=== PATIENT | female | born 1960 | race Caucasian/White ===

== ENCOUNTER 2017-03-09 17:19 | Emergency (ER) | payer OTHER ==
[~2017-03-09] VITALS: Ht 162.6 cm; Wt 144.0 kg
[~2017-03-09 17:19] MED LIST: FLUO40CA49 PO; LEVO100T85 PO; LISI-114 PO; [UNRECOGNIZED DRUG - REMARK]
[2017-03-09 17:22] VITALS: Ht 162.6 cm; Wt 144.0 kg
--- OUTSIDE RECORDS SUMMARY | 2017-03-09 17:24 | XMS REPORT | Referral Summary ---
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 Name Role Phone Renay Song Primary Care Physician [phone] Encounter VC Date(s): 01/08/15 - 01/08/15 [facility], [address] [place] [address]- [place] Discharge Diagnosis: Ankle sprain Discharge Diagnosis: Foot pain Discharge Disposition: Home or Self Care Attending Physician: Betty Sanchez APRN Admitting Physician: Betty Sanchez APRN Vital Signs Most recent to 1 oldest [Reference Range]: Temperature Tympanic 36.8 degC [36.6-38.1 degC] (01/08/15 2:33 PM) Peripheral Pulse 72 bpm Rate [60-100 bpm] (01/08/15 2:33 PM) Blood Pressure 110/80 mmHg [90-140/60-90 mmHg] (01/08/15 2:33 PM) Problem List Condition Effective Dates Status Health Status Informant Allergic Resolved rhinitis(Confirmed) Allergies(Confirmed) Resolved Angina(Confirmed) Resolved Anxiety(Confirmed) Resolved Bladder Resolved problem(Confirmed) Bronchitis(Confirmed Resolved ) Chronic Resolved osteoarthritis(Confi rmed) Constipation(Confirm Resolved ed) Depression(Confirmed Resolved ) Diabetes-type Resolved 2(Confirmed) Diverticulosis(Confi Resolved rmed) Dysmenorrhea(Confirm Resolved ed) Fatigue(Confirmed) Resolved GERD(Confirmed) Resolved High Resolved cholesterol(Confirme d) Hyperlipidemia(Confi Resolved rmed) Hypertension(Confirm Resolved ed) Hypothyroidism(Confi Resolved rmed) Kidney Resolved Disease/Stones(Confi rmed) kidney Resolved problems-unsure(Conf irmed)1 Knee Resolved pain(Confirmed)2 Microalbuminuria(Con Resolved firmed) Osteoarthritis(Confi Resolved rmed) Sleep Resolved apnea(Confirmed) 1Care by Dr Mireles 2lt Allergies, Adverse Reactions, Alerts Substance Reaction Severity Status penicillin Active Medications amLODIPine 5 mg oral tablet 1 tabs, Oral, Daily, Patient must schedule appt prior to next fill., # 30 tabs, 0 Refill(s), Pharmacy: [facility] [id number], 1 tabs Oral Daily,Instr: Patient must schedule appt prior to next fill. Special Instructions: Patient must schedule appt prior to next fill. Start Date: 12/11/14 Status: Ordered FLUoxetine 40 mg oral capsule See Instructions, TAKE 1 CAPSULE BY MOUTH EVERY MORNING, # 30 caps, 2 Refill(s) , eRx: [facility] [id number], TAKE 1 CAPSULE BY MOUTH EVERY MORNING Special Instructions: TAKE 1 CAPSULE BY MOUTH EVERY MORNING Start Date: 12/28/14 Status: Ordered fosinopril 20 mg oral tablet 1 tabs, Oral, Daily, # 30 tabs, 0 Refill(s) Start Date: 03/22/14 Status: Ordered ibuprofen 200 mg, Oral, q6hr, as needed for pain, with food, 0 Refill(s) Special Instructions: with food Start Date: 03/22/14 Status: Ordered levothyroxine 100 mcg (0.1 mg) oral tablet See Instructions, TAKE 1 TABLET BY MOUTH EVERY DAY., # 90 unknown unit, 3 Refill (s), eRx: [facility] [id number], TAKE 1 TABLET BY MOUTH EVERY DAY. Special Instructions: TAKE 1 TABLET BY MOUTH EVERY DAY. Start Date: 05/04/14 Status: Ordered triamterene-hydrochlorothiazide 37.5 mg-25 mg oral capsule See Instructions, TAKE 1 CAPSULE BY ORAL ROUTE EVERY DAY, # 90 unknown unit, 2 Refill(s), eRx: [facility] [id number], TAKE 1 CAPSULE BY ORAL ROUTE EVERY DAY Special Instructions: TAKE 1 CAPSULE BY ORAL ROUTE EVERY DAY Start Date: 10/19/14 Status: Ordered Results No data available for this section Immunizations Vaccine Date Refusal Reason tetanus/diphth/pertuss (Tdap) adult/adol 08/22/13 influenza virus vaccine, live 09/12/13 Procedures Procedure Date Related Diagnosis Body Site Hysterectomy 02/29/12 Colonoscopy1 07/24/08 section2 1982 Cholecystectomy Cornea transplant Tonsillectomy 1repeat in 10 years 2Second in 1985 Social History Social History Type Response Smoking Status Never smoker Assessment and Plan Extracted from: Title: Office Visit Note Author: Betty Sanchez APRN Date: 01/08/15 Assessment/Plan 1.Ankle sprain reviewed xray. symptom management. ice, elevate, rest. let us know if s/s persist or worsen. Foot pain
--- OUTSIDE RECORDS SUMMARY | 2017-03-09 17:24 | XMS REPORT | Continuity of Care Document ---
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 Name Role Phone Alyssa Song KERRI Unavailable Payers Payer name Insurance type Covered libertarian ID Authorization(s) Unknown Problems Condition Effective Dates (start - stop) Clinical Status Depression - *Chronic Hypertension, Unspecified - *Chronic Obesity - *Chronic Hypertension, Benign - *Chronic Obesity - *Chronic Depression - *Chronic Back pain - *Acute Knee pain - *Acute Hypertension, Unspecified - *Chronic Obesity - *Chronic Hypertension, Unspecified - *Chronic Depression - *Chronic Finger pain, left - *Acute Finger swelling - *Acute Depression - *Chronic Allergic rhinitis, cause unspecified - *Chronic Obesity - *Chronic Constipation - *Chronic Hypertension, Benign - *Chronic Proteinuria - *Acute Constipation, unspecified - *Acute Knee pain - *Acute Hypertension, Unspecified - *Chronic Osteoarth NOS-l/leg - *Chronic Primary osteoarthritis of left knee - *Symptomatic BPPV (benign paroxysmal positional vertigo) - *Acute Morbid obesity with BMI of 45.0-49.9, adult - *Chronic Body mass index 45.0-49.9, adult - *Chronic Primary osteoarthritis of both knees - *Symptomatic HYPOTHYROIDISM NOS - DMII WO CMP UNCNTRLD - PURE HYPERCHOLESTEROLEM - ANXIETY STATE NOS - 311 - DEPRESSIVE DISORDER NEC - MALIGNANT HYPERTENSION - HYPERTENSION NOS - ANGINA PECTORIS NEC/NOS - ALLERGIC RHINITIS NOS - 490 - BRONCHITIS NOS - CONSTIPATION NOS - CHRONIC KIDNEY DIS NOS - DYSMENORRHEA - OSTEOARTHROS NOS-UNSPEC - URINARY FREQUENCY - ALLERGY, UNSPECIFIED - Proteinuria - *Chronic Constipation, unspecified - *Chronic Pain in joint involving lower leg - *Chronic History of menorrhagia - *Resolved Family History Family Member Diagnosis Age At Onset Status Mother (Unknown) Cancer - ovarian Yes Son (Unknown) Diabetes Yes Social History Social History Element Description Quantity Unknown Allergies, Adverse Reactions, Alerts Substance Reaction Severity Status PENICILLINS Unknown Medications Medication Instructions Dosage Effective Dates (start - stop) Status Prozac 40 mg capsule take 1 capsule (40MG) by oral route every day in the morning 40 MG - Active ibuprofen 200 mg tablet take 1 tablet (200MG) by oral route every 6 hours as needed with food 200 MG - Active Miralax 17 gram/dose Oral Powder take (17G) by oral route every day mixed with 8 oz. water, juice, soda, coffee or tea 17 G - Active Metamucil Sugar Free Oral Powder USE DAILY PRN - Active levothyroxine 100 mcg tablet Take 1 tablet by mouth every day. 2012 - Active Flexeril 5 mg tablet take 1 tablet (5MG) by oral route 3 times every day 5 MG - Active hydrocodone 5 mg-acetaminophen 325 mg tablet take 1 tablet by oral route every 6 hours as needed for pain 0 - Active fosinopril 20 mg tablet take 1 tablet (20MG) by oral route every day 20 MG - Active triamterene 37.5 mg-hydrochlorothiazide 25 mg capsule take 1 capsule by oral route every day 0 - Active Immunizations Vaccine Date Status Comments Unknown Results Test Name Date and Time Measure Units Reference Range Abnormal Flag Comments Unknown Vital Signs Date / Time: Height Weight Pulse Rate Blood Pressure Temperature /11:43:00 65.00 in 310.40 lbs 74 /min 140/80 mm[Hg] 97.8 F Procedures Procedure Date Unknown Encounters Encounter Location Date Patient Visit [facility] Patient Visit [facility] Patient Visit [facility] Patient Visit [facility] Patient Visit [facility] Patient Visit [facility] Patient Visit [facility] Patient Visit [facility] Patient Visit [facility] Patient Visit Patient Visit [facility] Patient Visit [facility] Patient [facility] Patient Visit [facility] Patient Visit [facility] Patient Visit [facility] Patient Visit [facility] Patient Visit [facility] Patient Visit [facility] Advance Directives Directive Effective Date Unknown
--- OUTSIDE RECORDS SUMMARY | 2017-03-09 17:24 | XMS REPORT | Continuity of Care Document ---
Author Author [facility] Organization [facility] Address Unknown Phone Unavailable Allergies Active Description Code Type Severity Reaction Onset Reported/Identified Relationship to Patient Clinical Status Yes ciprofloxacin ciprofloxacin Drug Allergy Severe NAUSEA AND DIARRHEA 12/25/2015 Yes UNKNOWN ANTIBIOTIC UNKNOWN ANTIBIOTIC Drug Allergy Unknown N/V 12/25/2015 Medications Problems Procedures Results Encounters ACCT No. Visit Date/Time Discharge Status Pt. Type Provider Facility Loc./Unit Complaint [id number] 01/15/2014 08:58:00 01/15/2014 23 :59:59 [facility] Outpatient [id number] 08/11/2013 11:37:00 08/11/2013 23 :59:59 [facility] Outpatient
--- OUTSIDE RECORDS SUMMARY | 2017-03-09 17:24 | XMS REPORT | Referral Summary ---
Author Author [facility] [place], [facility] Organization [facility] Address Unknown Phone Unavailable Care Team Providers Care Hotel Sales Manager Name Role Phone Rony Acosta Primary Care Physician [phone] Encounter Date(s): 11/08/15 - 11/08/15 [facility] [place], [address] [place] [id number] Discharge Diagnosis: Knee pain Discharge Diagnosis: Hyperlipidemia Discharge Diagnosis: Diarrhea Discharge Disposition: 01-Home or Self Care Attending Physician: Manda Acosta DO Admitting Physician: Manda Acosta DO Vital Signs Most recent to 1 oldest [Reference Range]: Peripheral Pulse 84 bpm Rate [60-100 bpm] (11/08/15 1:57 PM) Respiratory Rate 18 br/min [14-20 br/min] (11/08/15 1:57 PM) Blood Pressure 126/78 mmHg [90-140/60-90 mmHg] (11/08/15 1:57 PM) SpO2 97 % (11/08/15 1:57 PM) Problem List Condition Effective Dates Status Health Status Informant Allergic Resolved rhinitis(Confirmed) Allergies(Confirmed) Resolved Angina(Confirmed) Resolved Anxiety(Confirmed) Resolved Bladder Resolved problem(Confirmed) Bronchitis(Confirmed Resolved ) Chronic Resolved osteoarthritis(Confi rmed) Constipation(Confirm Resolved ed) Depression(Confirmed Resolved ) Diabetes-type Resolved 2(Confirmed) Diarrhea(Confirmed) Active Diverticulosis(Confi Resolved rmed) Dysmenorrhea(Confirm Resolved ed) Fatigue(Confirmed) [...] Active Medications amLODIPine 5 mg oral tablet 5 mg 1 tabs, Oral, Daily, APPT SCHEDULED FOR 10/[address] ACOSTA, # 30 tabs, 0 Refill(s), Pharmacy: [facility] [id number], 1 tabs Oral Daily,Instr:APPT SCHEDULED FOR 10/[address] ACOSTA Start Date: 10/11/15 Status: Ordered FLUoxetine 40 mg oral capsule See Instructions, TAKE 1 CAPSULE BY MOUTH EVERY MORNING, # 30 caps, eRx: [facility] [id number], TAKE 1 CAPSULE BY MOUTH EVERY MORNING Start Date: 04/29/15 Status: Ordered FLUoxetine 40 mg oral capsule See Instructions, TAKE 1 CAPSULE BY MOUTH EVERY MORNING, # 30 caps, eRx: [facility] [id number], TAKE 1 CAPSULE BY MOUTH EVERY MORNING Start Date: 03/26/15 Status: Ordered FLUoxetine 40 mg oral capsule See Instructions, TAKE 1 CAPSULE BY MOUTH EVERY MORNING, # 30 caps, 1 Refill(s) , Pharmacy: [facility] [id number], TAKE 1 CAPSULE BY MOUTH EVERY MORNING Start Date: 10/21/15 Status: Ordered fosinopril 20 mg oral tablet 1 tabs, Oral, Daily, # 30 tabs, 0 Refill(s) Start Date: 03/22/14 Status: Ordered ibuprofen 200 mg, Oral, q6hr, as needed for pain, with food, 0 Refill(s) Start Date: 03/22/14 Status: Ordered levothyroxine 100 mcg (0.1 mg) oral tablet See Instructions, TAKE 1 TABLET BY MOUTH DAILY, # 30 tabs, 2 Refill(s), Pharmacy : [facility] [id number], TAKE 1 TABLET BY MOUTH DAILY Start Date: 10/21/15 Status: Ordered triamterene-hydrochlorothiazide 37.5 mg-25 mg oral capsule See Instructions, 1 CAPS ORAL DAILY,INSTR:* LAST REFILL UNTIL SEEN * YOU NEED TO SET UP APPOINTMENT WITH DR. ACOSTA, # 30 caps, 3 Refill(s), eRx: [facility] [id number], 1 CAPS ORAL DAILY,INSTR:* LAST REFILL UNTIL SEEN * YOU NEED TO SET UP APPOINTME... Start Date: 10/29/15 Status: Ordered Results No data available for [...] Extracted from: Title: Office Visit Note Author: Manda Acosta DO Date: 11/08/15 Assessment/Plan Diarrhea Patient will try a probiotic and we'll also keep a food journal. If this is not effective she will return to clinic. Ordered: Office Visit Level 4 Est 76598 Hyperlipidemia Discussed recent laboratory testing results. Handouts given ondietary modifications. We'll plan to recheck labs in 3-6 months. Ordered: Office Visit Level 4 Est 88824 Knee pain I discussed the results of recent MRI with patientwe will start with physical therapy. She should return to clinic if this is not effective for her. Ordered: Office Visit Level 4 Est [id number] Request for Therapies Extracted from: Title: Ambulatory Patient Education Author: Manda Acosta DO Date: Family Medicine Fat and Cholesterol Control Diet Fat and cholesterol levels in your blood and organs are influenced by your diet. High levels of fat and cholesterol may lead to diseases of the heart, small and large blood vessels, gallbladder, liver, and pancreas. CONTROLLING FAT AND CHOLESTEROL WITH DIET Although exercise and lifestyle factors are important, your diet is friedman. That is because certain foods are known to raise cholesterol and others to lower it. The goal is to balance foods for their effect on cholesterol and more importantly, to replace saturated and trans fat with other types of fat, such as monounsaturated fat, polyunsaturated fat, and omega-3 fatty acids. On average, a person should consume no more than 15 to 17 g of saturated fat daily. Saturated and trans fats are considered "bad" fats, and they will raise LDL cholesterol. Saturated fats are primarily found in animal products such as meats, butter, and cream. However, that does not mean you need to give up all your favorite foods. Today, there are good tasting, low-fat, low-cholesterol substitutes for most of the things you like to eat. Choose low-fat or nonfat alternatives. Choose round or loin cuts of red meat. These types of cuts are lowest in fat and cholesterol. Chicken (without the skin), fish, veal, and ground turkey breast are great choices. Eliminate fatty meats, such as hot dogs and salami. Even shellfish have little or no saturated fat. Have a 3 oz (85 g) portion when you eat lean meat, poultry, or fish. Trans fats are also called "partially hydrogenated oils." They are oils that have been scientifically manipulated so that they are solid at room temperature resulting in a longer shelf life and improved taste and texture of foods in which they are added. Trans fats are found in stick margarine, some tub margarines, cookies, crackers, and baked goods. When baking and cooking, oils are a great substitute for butter. The monounsaturated oils are especially beneficial since it is believed they lower LDL and raise HDL. The oils you should avoid entirely are saturated tropical oils, such as coconut and palm. Remember to eat a lot from food groups that are naturally free of saturated and trans fat, including fish, fruit, vegetables, beans, grains (barley, rice, couscous, bulgur wheat), and pasta (without cream sauces). IDENTIFYING FOODS THAT LOWER FAT AND CHOLESTEROL Soluble fiber may lower your cholesterol. This type of fiber is found in fruits such as apples, vegetables such as broccoli, potatoes, and carrots, legumes such as beans, peas, and lentils, and grains such as barley. Foods fortified with plant sterols (phytosterol) may also lower cholesterol. You should eat at least 2 g per day of these foods for a cholesterol lowering effect. Read package labels to identify low-saturated fats, trans fat free, and low-fat foods at the supermarket. Select cheeses that have only 2 to 3 g saturated fat per ounce. Use a heart-healthy tub margarine that is free of trans fats or partially hydrogenated oil. When buying baked goods (cookies, crackers), avoid partially hydrogenated oils. Breads and muffins should be made from whole grains (whole-wheat or whole oat flour, instead of "flour" or "enriched flour") . Buy non-creamy canned soups with reduced salt and no added fats. FOOD PREPARATION TECHNIQUES Never deep-miguel. If you must miguel, either stir-miguel, which uses very little fat, or use non-stick cooking sprays. When possible, broil, bake, or roast meats, and steam vegetables. Instead of putting butter or margarine on vegetables, use lemon and herbs, applesauce, and cinnamon (for squash and sweet potatoes). Use nonfat yogurt, salsa, and low-fat dressings for salads. LOW-SATURATED FAT / LOW-FAT FOOD SUBSTITUTES Meats / Saturated Fat (g) Avoid: Steak, marbled (3 oz/85 g) / 11 g Choose: Steak, lean (3 oz/85 g) / 4 g Avoid: Hamburger (3 oz/85 g) / 7 g Choose: Hamburger, lean (3 oz/85 g) / 5 g Avoid: Ham (3 oz/85 g) / 6 g Choose: Ham, lean cut (3 oz/85 g) / 2.4 g Avoid: Chicken, with skin, dark meat (3 oz/85 g) / 4 g Choose: Chicken, skin removed, dark meat (3 oz/85 g) / 2 g Avoid: Chicken, with skin, light meat (3 oz/85 g) / 2.5 g Choose: Chicken, skin removed, light meat (3 oz/85 g) / 1 g Dairy / Saturated Fat (g) Avoid: Whole milk (1 cup) / 5 g Choose: Low-fat milk, 2% (1 cup) / 3 g Choose: Low-fat milk, 1% (1 cup) / 1.5 g Choose: Skim milk (1 cup) / 0.3 g Avoid: Hard cheese (1 oz/28 g) / 6 g Choose: Skim milk cheese (1 oz/28 g) / 2 to 3 g Avoid: Cottage cheese, 4% fat (1 cup) / 6.5 g Choose: Low-fat cottage cheese, 1% fat (1 cup) / 1.5 g Avoid: Ice cream (1 cup) / 9 g Choose: Sherbet (1 cup) / 2.5 g Choose: Nonfat frozen yogurt (1 cup) / 0.3 g Choose: Frozen fruit bar / trace Avoid: Whipped cream (1 tbs) / 3.5 g Choose: Nondairy whipped topping (1 tbs) / 1 g Condiments / Saturated Fat (g) Avoid: Mayonnaise (1 tbs) / 2 g Choose: Low-fat mayonnaise (1 tbs) / 1 g Avoid: Butter (1 tbs) / 7 g Choose: Extra light margarine (1 tbs) / 1 g Avoid: Coconut oil (1 tbs) / 11.8 g Choose: [place] oil (1 tbs) / 1.8 g Choose: [place] oil (1 tbs) / 1.7 g Choose: Safflower oil (1 tbs) / 1.2 g Choose: [place] oil (1 tbs) / 1.4 g Choose: Soybean oil (1 tbs) / 2.4 g Choose: Canola oil (1 tbs) / 1 g Document Released: 10/08/2006 Document Revised: 02/02/2014 Document Reviewed: [facility] Patient Information 2015 [employer] [facility]. This information is not intended to replace advice given to you by your health care provider. Make sure you discuss any questions you have with your health care provider. Food Choices to Lower Your Triglycerides Triglycerides are a type of fat in your blood. High levels of triglycerides can increase the risk of heart disease and stroke. If your triglyceride levels are high, the foods you eat and your eating habits are very important. Choosing the right foods can help lower your triglycerides. WHAT GENERAL GUIDELINES DO I NEED TO FOLLOW? Lose weight if you are overweight. Limit or avoid alcohol. Fill one half of your plate with vegetables and green salads. Limit fruit to two servings a day. Choose fruit instead of juice. Make one fourth of your plate whole grains. Look for the word "whole" as the first word in the ingredient list. Fill one fourth of your plate with lean protein foods. Enjoy fatty fish (such as salmon, mackerel, sardines, and tuna) three times a week. Choose healthy fats. Limit foods high in starch and sugar. Eat more home-cooked food and less restaurant, buffet, and fast food. Limit fried foods. Cook foods using methods other than frying. Limit saturated fats. Check ingredient lists to avoid foods with partially hydrogenated oils ( trans fats) in them. WHAT FOODS CAN I EAT? Grains Whole grains, such as whole wheat or whole grain breads, crackers, cereals, and pasta. Unsweetened oatmeal, bulgur, barley, quinoa, or brown rice. [place] or whole wheat flour tortillas. Vegetables Fresh or frozen vegetables (raw, steamed, roasted, or grilled). Green salads. Fruits All fresh, canned (in natural juice), or frozen fruits. Meat and Other Protein Products Ground beef (85% or leaner), grass-fed beef, or beef trimmed of fat. Skinless chicken or turkey. Ground chicken or turkey. Pork trimmed of fat. All fish and seafood. Eggs. Dried beans, peas, or lentils. Unsalted nuts or seeds. Unsalted canned or dry beans. Dairy Low-fat dairy products, such as skim or 1% milk, 2% or reduced-fat cheeses, low- fat ricotta or cottage cheese, or plain low-fat yogurt. Fats and Oils Tub margarines without trans fats. Light or reduced-fat mayonnaise and salad dressings. Avocado. Safflower, olive, or canola oils. Natural peanut or almond butter. The items listed above may not be a complete list of recommended foods or beverages. Contact your dietitian for more options. WHAT FOODS ARE NOT RECOMMENDED? Grains White bread. White pasta. White rice. Cornbread. Bagels, pastries, and croissants. Crackers that contain trans fat. Vegetables White potatoes. [place]. Creamed or fried vegetables. Vegetables in a cheese sauce. Fruits Dried fruits. Canned fruit in light or heavy syrup. Fruit juice. Meat and Other Protein Products Fatty cuts of meat. Ribs, chicken wings, garcias, sausage, bologna, salami, chitterlings, fatback, hot dogs, bratwurst, and packaged luncheon meats. Dairy Whole or 2% milk, cream, [id number], and cream cheese. Whole-fat or sweetened yogurt. Full-fat cheeses. Nondairy creamers and whipped toppings. Processed cheese, cheese spreads, or cheese curds. Sweets and Desserts [place] syrup, sugars, honey, and molasses. Candy. Jam and jelly. Syrup. Sweetened cereals. Cookies, pies, cakes, donuts, muffins, and ice cream. Fats and Oils Butter, stick margarine, lard, shortening, ghee, or garcias fat. Coconut, palm kernel, or palm oils. Beverages Alcohol. Sweetened drinks (such as sodas, lemonade, and fruit drinks or punches) . The items listed above may not be a complete list of foods and beverages to avoid. Contact your dietitian for more information. Document Released: 07/26/2005 Document Revised: 10/13/2014 Document Reviewed: [facility] Patient Information 2015 [facility], [facility]. This information is not intended to replace advice given to you by your health care provider. Make sure you discuss any questions you have with your health care provider. No follow up information was provided.
--- OUTSIDE RECORDS SUMMARY | 2017-03-09 17:24 | XMS REPORT | Referral Summary ---
Author Author [facility], Family Medicine Organization [facility] Address Unknown Phone Unavailable Care Team Providers Care Vp Marketing Services And Skin Name Role Phone Rony Acosta Primary Care Physician [phone] Encounter VC Date(s): 12/22/15 - 12/22/15 [facility] Dick Newton, [address] [place] [address]- Discharge Disposition: 01-Home or Self Care Attending Physician: Manda Acosta DO Admitting Physician: Manda Acosta DO Vital Signs Most recent to 1 oldest [Reference Range]: Peripheral Pulse 83 bpm Rate [60-100 bpm] (12/22/15 12:46 PM) Respiratory Rate 18 br/min [14-20 br/min] (12/22/15 12:46 PM) Blood Pressure 108/76 mmHg [90-140/60-90 mmHg] (12/22/15 12:46 PM) SpO2 95 % (12/22/15 12:46 PM) Problem List Condition Effective Dates Status [...] Active Medications amLODIPine 5 mg oral tablet See Instructions, 1 TABS ORAL DAILY,INSTR:APPT SCHEDULED FOR 10/[address] ACOSTA , # 30 tabs, 2 Refill(s), eRx: [facility] [id number], 1 TABS ORAL DAILY, INSTR:APPT SCHEDULED FOR 10/[address] ACOSTA Start Date: 11/10/15 Status: Ordered FLUoxetine 40 mg oral capsule See Instructions, TAKE 1 CAPSULE BY MOUTH EVERY MORNING, # 30 caps, 1 Refill(s) , eRx: [facility] [id number], TAKE 1 CAPSULE BY MOUTH EVERY MORNING Start Date: 12/17/15 Status: Ordered fosinopril 20 mg oral tablet 1 tabs, Oral, Daily, # 30 tabs, 0 Refill(s) Start Date: 03/22/14 Status: Ordered ibuprofen 200 mg, Oral, q6hr, as needed for pain, with food, 0 Refill(s) Start Date: 03/22/14 Status: Ordered levothyroxine 100 mcg (0.1 mg) oral tablet See Instructions, TAKE 1 TABLET BY MOUTH DAILY, # 30 tabs, 2 Refill(s), Pharmacy : [facility] [id number], TAKE 1 TABLET BY MOUTH DAILY Start Date: 10/21/15 Status: Ordered triamterene-hydrochlorothiazide 37.5 mg-25 mg oral capsule See Instructions, 1 CAPS ORAL DAILY,INSTR:* LAST REFILL UNTIL SEEN * YOU NEED TO SET UP APPOINTMENT WITH DR. ACOSTA, # 30 caps, 3 Refill(s), eRx: [facility] [id number], 1 CAPS ORAL DAILY,INSTR:* LAST REFILL UNTIL [...] smoker Assessment and Plan Extracted from: Title: WWE Author: Manda Acosta DO Date: 12/22/15 Assessment/Plan Screening for human papillomavirus (HPV) Ordered: HPV High Risk, Thin Prep Well female exam with routine gynecological exam Normal exam today. Further recommendations after results of Pap and HPV testing. We will assist her in any way we can in regards to weight loss surgery. Ordered: Periodic Comp Preventive Med 40 to 64 years Est 58085
--- OUTSIDE RECORDS SUMMARY | 2017-03-09 17:24 | XMS REPORT | Referral Summary ---
Author Organization Unknown Address Unknown Phone Unavailable Care Team Providers Care Wholesale Agronomist Name Role Phone Renay Song Primary Care Physician [phone] Encounter VC Date(s): 12/07/14 - 12/07/14 [facility], [address] [place] [address]- Discharge Diagnosis: Acute URI Discharge Disposition: Home or Self Care Attending Physician: Betty Sanchez APRN Admitting Physician: Betty Sanchez APRN Vital Signs Most recent to 1 oldest [Reference Range]: Temperature Tympanic 36.7 degC [36.6-38.1 degC] (12/07/14 8:54 AM) Peripheral Pulse 78 bpm Rate [60-100 bpm] (12/07/14 8:54 AM) Blood Pressure 120/70 mmHg [90-140/60-90 mmHg] (12/07/14 8:54 AM) Problem List Condition Effective Dates Status Health [...] amLODIPine 5 mg oral tablet See Instructions, TAKE 1 TABLET (5MG) BY ORAL ROUTE EVERY DAY, # 30 unknown unit , 1 Refill(s), eRx: [facility] [id number], TAKE 1 TABLET (5MG) BY ORAL ROUTE EVERY DAY Special Instructions: TAKE 1 TABLET (5MG) BY ORAL ROUTE EVERY DAY Start Date: 06/29/14 Status: Ordered FLUoxetine 40 mg oral capsule See Instructions, TAKE 1 CAPSULE BY MOUTH EVERY MORNING, # 30 caps, 0 Refill(s) , Pharmacy: [facility] [id number], pt due for appointment no more refills until seen, TAKE 1 CAPSULE BY MOUTH EVERY MORNING Special Instructions: TAKE 1 CAPSULE BY MOUTH EVERY MORNING Start Date: 11/19/14 Status: Ordered fosinopril 20 mg oral tablet [...] 90 unknown unit, 3 Refill (s), eRx: [facility] [id number], TAKE 1 TABLET BY MOUTH EVERY DAY. Special Instructions: TAKE 1 TABLET BY MOUTH EVERY DAY. Start Date: 05/04/14 Status: Ordered triamterene-hydrochlorothiazide 37.5 mg-25 mg oral capsule See Instructions, TAKE 1 CAPSULE BY ORAL ROUTE EVERY DAY, # 90 unknown unit, 2 Refill(s), eRx: [facility] [id number], TAKE 1 CAPSULE BY ORAL ROUTE EVERY [...] smoker Assessment and Plan Extracted from: Title: Ambulatory Patient Education Author: Betty Sanchez APRN Date : 12/07/14 Family Medicine Antibiotic Nonuse Your caregiver felt that the infection or problem was not one that would be helped with an antibiotic. Infections may be caused by viruses or bacteria. Only a caregiver can tell which one of these is the likely cause of an illness. A cold is the most common cause of infection in both adults and children. A cold is a virus. Antibiotic treatment will have no effect on a viral infection. Viruses can lead to many lost days of work caring for sick children and many missed days of school. Children may catch as many as 10 "colds" or "flus" per year during which they can be tearful, cranky, and uncomfortable. The goal of treating a virus is aimed at keeping the ill person comfortable. Antibiotics are medications used to help the body fight bacterial infections. There are relatively few types of bacteria that cause infections but there are hundreds of viruses. While both viruses and bacteria cause infection they are very different types of germs. A viral infection will typically go away by itself within 7 to 10 days. Bacterial infections may spread or get worse without antibiotic treatment. Examples of bacterial infections are: Sore throats (like strep throat or tonsillitis). Infection in the lung (pneumonia). Ear and skin infections. Examples of viral infections are: Colds or flus. Most coughs and bronchitis. Sore throats not caused by Strep. Runny noses. It is often best not to take an antibiotic when a viral infection is the cause of the problem. Antibiotics can kill off the helpful bacteria that we have inside our body and allow harmful bacteria to start growing. Antibiotics can cause side effects such as allergies, nausea, and diarrhea without helping to improve the symptoms of the viral infection. Additionally, repeated uses of antibiotics can cause bacteria inside of our body to become resistant. That resistance can be passed onto harmful bacterial. The next time you have an infection it may be harder to treat if antibiotics are used when they are not needed. Not treating with antibiotics allows our own immune system to develop and take care of infections more efficiently. Also, antibiotics will work better for us when they are prescribed for bacterial infections. Treatments for a child that is ill may include: Give extra fluids throughout the day to stay hydrated. Get plenty of rest. Only give your child itic-soh-pxkbtlx or prescription medicines for pain, discomfort, or fever as directed by your caregiver. The use of a cool mist humidifier may help stuffy noses. Cold medications if suggested by your caregiver. Your caregiver may decide to start you on an antibiotic if: The problem you were seen for today continues for a longer length of time than expected. You develop a secondary bacterial infection. SEEK MEDICAL CARE IF: Fever lasts longer than 5 days. Symptoms continue to get worse after 5 to 7 days or become severe. Difficulty in breathing develops. Signs of dehydration develop (poor drinking, rare urinating, dark colored urine). Changes in behavior or worsening tiredness (listlessness or lethargy). Document Released: 12/17/2002 Document Revised: 12/30/2012 Document Reviewed: [facility] Patient Information 2014 [facility]. No follow up information was provided. Extracted from: Title: Office Visit Note Author: Betty Sanchez APRN Date: 12/07/14 Assessment/Plan 1.Acute URI Symptom management. List of OTC meds given. Nasal Rinses. Push fluids. Rest.
--- OUTSIDE RECORDS SUMMARY | 2017-03-09 17:24 | XMS REPORT | Referral Summary ---
Author Author [facility], [facility] Organization [facility] Address Unknown Phone Unavailable Care Team Providers Care Fiber Drier Operator Name Role Phone Rony Acosta Primary Care Physician [phone] Encounter VC Date(s): 04/21/16 - 04/21/16 [facility] Dick Newton, [address] [place] [address]- Discharge Disposition: 01-Home or Self Care Attending Physician: Manda Acosta DO Admitting Physician: Manda Acosta DO Vital Signs No data available for this section Problem List Condition Effective Dates Status Health [...] MOUTH DAILY, # 30 tabs, 2 Refill(s), eRx: [facility] [id number], TAKE 1 TABLET BY MOUTH DAILY Start Date: 02/07/16 Status: Ordered FLUoxetine 40 mg oral capsule See Instructions, TAKE 1 CAPSULE BY MOUTH EVERY MORNING, # 30 caps, 2 Refill(s) , eRx: [facility] [id number], TAKE 1 CAPSULE BY MOUTH EVERY MORNING Start Date: 02/14/16 Status: Ordered fosinopril 20 mg oral tablet 1 tabs, Oral, Daily, # 30 tabs, 0 Refill(s) Start Date: 03/22/14 Status: Ordered ibuprofen 200 mg, Oral, q6hr, as needed for pain, with food, 0 Refill(s) Start Date: 03/22/14 Status: Ordered levothyroxine 100 mcg (0.1 mg) oral tablet See Instructions, TAKE 1 TABLET BY MOUTH EVERY DAY, # 30 tabs, 2 Refill(s), eRx : [facility] [id number], TAKE 1 TABLET BY MOUTH EVERY DAY Start Date: 04/13/16 Status: Ordered triamterene-hydrochlorothiazide 37.5 mg-25 mg oral tablet 1/2 tab, Oral, Daily, # 15 tabs, 4 Refill(s), other reason (Rx) Start Date: 03/03/16 Status: Ordered Results No data available for this section Immunizations Vaccine Date Refusal Reason tetanus/diphth/pertuss (Tdap) adult/adol 08/22/13 influenza virus vaccine, live 09/12/13 Procedures Procedure Date Related Diagnosis Body Site Hysterectomy 02/29/12 Colonoscopy1 07/24/08 section2 1982 Cholecystectomy Cornea transplant Tonsillectomy 1repeat in 10 years 2Second in 1985 Social History Social History Type Response Smoking Status Never smoker Assessment and Plan No data available for this section
--- OUTSIDE RECORDS SUMMARY | 2017-03-09 17:24 | XMS REPORT | Referral Summary ---
Author Author [facility], [facility] Medicine Organization [facility] Address Unknown Phone Unavailable Care Team Providers Care Outsole Cementer Machine Name Role Phone Rony Acosta Primary Care Physician [phone] Encounter Date(s): 12/15/16 - 12/15/16 [facility] Dick Newton, [address] [place] [address] [place] Discharge Diagnosis: Need for hepatitis C screening test Discharge Diagnosis: Fatigue Discharge Diagnosis: Blunt head trauma Discharge Diagnosis: Depression Discharge Diagnosis: Numbness and tingling Discharge Diagnosis: Hypothyroidism Discharge Diagnosis: Benign essential hypertension Discharge Diagnosis: Hyperlipidemia Discharge Disposition: 01-Home or Self Care Attending Physician: Manda Acosta DO Admitting Physician: Manda Acosta DO Vital Signs Most recent to 1 oldest [Reference Range]: Temperature Tympanic 36.9 degC [36.6-38.1 degC] (12/15/16 8:47 AM) Peripheral Pulse 70 bpm Rate [60-100 bpm] (12/15/16 8:47 AM) Respiratory Rate 16 br/min [14-20 br/min] (12/15/16 8:47 AM) Blood Pressure 138/88 mmHg [90-140/60-90 mmHg] (12/15/16 8:47 AM) SpO2 98 % (12/15/16 8:47 AM) Problem List Condition Effective Dates Status [...] irmed)1 Knee Resolved pain(Confirmed)2 Microalbuminuria(Con Resolved firmed) Morbid Active patient obesity(Confirmed) Osteoarthritis(Confi Resolved rmed) Sleep Resolved apnea(Confirmed) 1Care by Dr Mireles 2lt Allergies, Adverse Reactions, Alerts Substance Reaction Severity Status penicillin Active Medications amLODIPine 5 mg oral tablet 5 mg 1 tabs, Oral, Daily, # 90 tabs, 1 Refill(s), Pharmacy: [facility] [id number], 1 tabs Oral Daily Start Date: 12/15/16 Status: Ordered fosinopril 20 mg oral tablet 1 tabs, Oral, Daily, # 30 tabs, 0 Refill(s) Start Date: 03/22/14 Status: Ordered ibuprofen 200 mg, Oral, q6hr, as needed for pain, with food, 0 Refill(s) Start Date: 03/22/14 Status: Ordered levothyroxine 100 mcg (0.1 mg) oral tablet See Instructions, TAKE 1 TABLET BY MOUTH EVERY DAY, # 30 tabs, 1 Refill(s), Pharmacy: [facility] [id number], TAKE 1 TABLET BY MOUTH EVERY DAY Start Date: 12/15/16 Status: Ordered sertraline 50 mg oral tablet 50 mg 1 tabs, Oral, Daily, # 90 tabs, 0 Refill(s), Pharmacy: [facility] [id number], 1 tabs Oral Daily Start Date: 12/15/16 Status: Ordered triamterene-hydrochlorothiazide 37.5 mg-25 mg oral tablet 1/2 tab, Oral, Daily, # 15 tabs, 4 Refill(s), other reason (Rx) Start Date: 03/03/16 Status: Ordered triamterene-hydrochlorothiazide 37.5 mg-25 mg oral tablet See Instructions, TAKE 1 TABLET BY MOUTH EVERY DAY, # 90 tabs, 1 Refill(s), Pharmacy: [facility] [id number] Start Date: 12/15/16 Status: Ordered Results Hematology Most recent to 1 oldest [Reference Range]: WBC [4.8-10.8 6.2 10*3/uL 10*3/uL] (12/15/16 9:39 AM) RBC [4.00-5.20] 4.81 (12/15/16 9:39 AM) Hgb [12.0-16.0 14.7 gm/dL gm/dL] (12/15/16 9:39 AM) Hct [37.0-47.0 %] 44.5 % (12/15/16:39 AM) MCV [82.0-99.0 fL] 92.5 fL (12/15/16 9:39 AM) MCH [27.0-32.0 pg] 30.6 pg (12/15/16:39 AM) MCHC [32.0-36.0 33.0 gm/dL gm/dL] (12/15/16 9:39 AM) RDW [11.5-14.5 %] 13.2 % (12/15/16 9:39 AM) Platelet [150-400 174 10*3/uL 10*3/uL] (12/15/16 9:39 AM) MPV [8.8-14.8 fL] 10.6 fL (12/15/16 9:39 AM) Immature 0.2 % Granulocytes (12/15/16:39 AM) [0.0-1.0 %] Neutrophils [51-75 52 % %] (12/15/16 9:39 AM) Lymphocytes [20-46 35 % %] (12/15/16 9:39 AM) Monocytes [4-11 %] 6 % (12/15/16 9:39 AM) Eosinophils [0-4 %] 6 % *HI* (12/15/16 9:39 AM) Basophils [0-2 %] 1 % (12/15/16 9:39 AM) Neutro Absolute 3.24 [1.90-7.00] (12/15/16 9:39 AM) Lymph Absolute 2.19 [0.80-3.30] (12/15/16 9:39 AM) [place] Absolute 0.38 [0.30-1.00] (12/15/16 9:39 AM) Eos Absolute 0.34 [0.00-0.50] (12/15/16 9:39 AM) Baso Absolute 0.04 [0.00-0.20] (12/15/16 9:39 AM) Chemistry Most recent to 1 oldest [Reference Range]: Sodium Lvl [135-144 141 mEq/L mEq/L] (12/15/16 9:39 AM) Potassium Lvl 4.6 mEq/L [3.5-5.2 mEq/L] (12/15/16 9:39 AM) Chloride [99-111 103 mEq/L mEq/L] (12/15/16 9:39 AM) CO2 [22-31 mEq/L] 29 mEq/L (12/15/16 9:39 AM) AGAP [3-20] 9 (12/15/16 9:39 AM) BUN [10-20 mg/dL] 25 mg/dL *HI* (12/15/16 9:39 AM) Glucose Lvl [70-99 106 mg/dL mg/dL] *HI* (12/15/16 9:39 AM) Creatinine Lvl 0.91 mg/dL [0.57-1.11 mg/dL] (12/15/16 9:39 AM) eGFR [>60 mL/min] >60 mL/min 1 (12/15/16 9:39 AM) Calcium Lvl 10.1 mg/dL 2 [8.4-10.2 mg/dL] (12/15/16 9:39 AM) Albumin Lvl [3.5-5.0 4.3 gm/dL gm/dL] (12/15/16 9:39 AM) Total Protein 7.4 gm/dL [6.1-7.7 gm/dL] (12/15/16 9:39 AM) Globulin [1.8-4.0 3.1 gm/dL gm/dL] (12/15/16 9:39 AM) ALT [0-55 U/L] 30 U/L (12/15/16 9:39 AM) AST [5-34 U/L] 30 U/L (12/15/16 9:39 AM) Alk Phos [40-150 69 U/L U/L] (12/15/16 9:39 AM) Bili Total [0.2-1.2 0.6 mg/dL mg/dL] (12/15/16 9:39 AM) Vitamin B12 Lvl 523 pg/mL [213-816 pg/mL] (12/15/16 9:39 AM) Folate Lvl [7.0-31.4 8.4 ng/mL ng/mL] (12/15/16 9:39 AM) Chol [0-199 mg/dL] 268 mg/dL *HI* (12/15/16 9:39 AM) Trig [0-149 mg/dL] 244 mg/dL *HI* (12/15/16 9:39 AM) HDL [40-84 mg/dL] 53 mg/dL (12/15/16 9:39 AM) LDL [0-130 mg/dL] 166 mg/dL *HI* (12/15/16 9:39 AM) VLDL Cholesterol 49 mg/dL [0-28 mg/dL] *HI* (12/15/16 9:39 AM) Cardiac Risk 5.1 [0.0-5.0] *HI* (12/15/16 9:39 AM) Hep C Ab Negative (12/15/16 9:39 AM) TSH with Reflex Free 2.84 T4 [0.35-4.94] (12/15/16 9:39 AM) Hgb A1c [4.1-5.6 %] 5.5 % (12/15/16 9:39 AM) eAvg Glucose 111.2 mg/dL (12/15/16 9:39 AM) 1Result Comment: Multiply eGFR results by 1.21 for race. 2Result Comment: Please note reference range change effective 11/24/2016. Immunizations Given and Recorded Vaccine Date Status Refusal Reason tetanus/diphth/pertuss (Tdap) adult/adol 08/22/13 Recorded influenza virus vaccine, live 09/12/13 Given Procedures Procedure Date Related Diagnosis Body Site Collection of venous blood by venipuncture 12/15/16 Hysterectomy 02/29/12 Colonoscopy1 07/24/08 section2 1982 Cholecystectomy Cornea transplant Tonsillectomy 1repeat in 10 years 2Second in 1985 Social History Social History Type Response Smoking Status Never smoker Assessment and Plan Extracted from: Title: Office Visit Note Author: Manda Acosta DO Date: 12/15/16 Assessment/Plan Benign essential hypertension CMP today, continue current regimen at this time. Ordered: Office Visit Level 4 Est 73434 Blunt head trauma Patient will try some physical therapy for thisand her decreased vision as well as her trouble with balance. Ordered: Office Visit Level 4 Est 86353 Depression We will taper patient off of fluoxetine and start sertraline. Patient should return to clinic in 6 weeks. Ordered: Office Visit Level 4 Est 61719 Fatigue CBC, CMP, TSH, V2ewzxew with further recommendations after results. Ordered: Office Visit Level 4 Est 47612 Vitamin D 25 Hydroxy Level Hyperlipidemia CMP and FLP today with further recommendations after results. Ordered: Office Visit Level 4 Est 89568 Hypothyroidism TSH today with further recommendations after results. Ordered: Office Visit Level 4 Est 08348 Need for hepatitis C screening test Screening lab work performed to further recommendations after results. Ordered: Office Visit Level 4 Est 30850 Numbness and tingling Labs as indicated above, physical therapy, patient declines anyother medications or help with her right leg pain or foot cramps at this point, return to clinic in 6 weeks for reevaluation. Ordered: Office Visit Level 4 Est 16729 Request for Therapies
--- OUTSIDE RECORDS SUMMARY | 2017-03-09 17:24 | XMS REPORT | Referral Summary ---
Author Author [facility], [facility] Medicine Organization [facility] Address Unknown Phone Unavailable Care Team Providers Care Developmental Therapist Name Role Phone Rony Acosta Primary Care Physician [phone] Encounter VC Date(s): 10/21/15 - 10/21/15 [facility] Dick Newton, [address] [place] [address] Discharge Disposition: 01-Home or Self Care Attending Physician: Manda Acosta DO Admitting Physician: Manda Acosta DO Vital Signs Most recent to 1 oldest [Reference Range]: Temperature Tympanic 37 degC [36.6-38.1 degC] (10/21/15 8:55 AM) Peripheral Pulse 74 bpm Rate [60-100 bpm] (10/21/15 8:55 AM) Blood Pressure 134/81 mmHg [90-140/60-90 mmHg] (10/21/15 8:55 AM) Problem List Condition Effective Dates Status [...] ACOSTA, # 30 tabs, 0 Refill(s), Pharmacy: [facility] [id number], 1 tabs Oral Daily,Instr:APPT SCHEDULED FOR 10/[address] ACOSTA Start Date: 10/11/15 Status: Ordered FLUoxetine 40 mg oral capsule See Instructions, TAKE 1 CAPSULE BY MOUTH EVERY MORNING, # 30 caps, eRx: [facility] [id number], TAKE 1 CAPSULE BY MOUTH EVERY MORNING Start Date: 04/29/15 Status: Ordered FLUoxetine 40 mg oral capsule See Instructions, TAKE 1 CAPSULE BY MOUTH EVERY MORNING, # 30 caps, eRx: [facility] [id number], TAKE 1 CAPSULE BY MOUTH EVERY MORNING Start Date: 03/26/15 Status: Ordered FLUoxetine 40 mg oral capsule See Instructions, TAKE 1 CAPSULE BY MOUTH EVERY MORNING, # 30 caps, 1 Refill(s) , Pharmacy: [facility] [id number], TAKE 1 CAPSULE BY MOUTH EVERY MORNING [...] # 30 tabs, 2 Refill(s), Pharmacy : [facility] [id number], TAKE 1 TABLET BY MOUTH DAILY Start Date: 10/21/15 Status: Ordered triamterene-hydrochlorothiazide 37.5 mg-25 mg oral capsule See Instructions, 1 CAPS ORAL DAILY,INSTR:* LAST REFILL UNTIL SEEN * YOU NEED TO SET UP APPOINTMENT WITH DR. ACOSTA, # 30 caps, eRx: [facility] [id number] , 1 CAPS ORAL DAILY,INSTR:* LAST REFILL UNTIL SEEN * YOU NEED TO SET UP APPOINTMENT WITH DR. ACOSTA Start Date: 09/27/15 Status: Ordered Results No data available for [...]
--- OUTSIDE RECORDS SUMMARY | 2017-03-09 17:25 | XMS REPORT | Continuity of Care Document ---
Author Author Alyssa Song MD Ambulatory Address [address] [place] [address] [place] [address] Phone Care Team Providers Care Quantitative Developer Name Role Phone Alyssa Song PP Unavailable Payers Payer name Insurance type Covered libertarian ID Authorization(s) Unknown Problems Condition Effective Dates (start - stop) Clinical Status Sinusitis, Acute - *Acute Hypertension, Benign - *Chronic Obesity - *Chronic Hypertension, Unspecified - *Chronic Obesity - *Chronic Hypertension, Unspecified - *Chronic Depression - *Chronic Finger pain, left - *Acute Finger swelling - *Acute Depression - *Chronic Allergic rhinitis, cause unspecified - *Chronic Obesity - *Chronic Constipation - *Chronic Hypertension, Benign - *Chronic Depression - *Chronic Back pain - *Acute Knee pain - *Acute Proteinuria - *Acute Constipation, unspecified - *Acute Knee pain - *Acute Hypertension, Unspecified - *Chronic Osteoarth NOS-l/leg - *Chronic Primary osteoarthritis of left knee - *Symptomatic BPPV (benign paroxysmal positional vertigo) - *Acute Depression - *Chronic Hypertension, Unspecified - *Chronic Obesity - *Chronic Hypertension, Unspecified - *Chronic Morbid obesity with BMI of 45.0-49.9, adult [...] - *Chronic History of menorrhagia - *Resolved Hypertension, unspecified - *Chronic Preventive measure - *Chronic Depression - *Chronic Family History Family Member Diagnosis Age At Onset Status Mother (Unknown) Cancer - ovarian Yes Son (Unknown) Diabetes Yes Social History Social History Element Description Quantity Unknown Allergies, Adverse Reactions, Alerts Substance Reaction Severity Status PENICILLINS Unknown Medications Medication Instructions Dosage Effective Dates (start - stop) Status MUCINEX DM (unknown strength) take 1 tablet by oral route every 12 hours - Active Tessalon Perles 100 mg capsule take 1 capsule (100MG) by oral route 3 times every day 100 MG - Active Zithromax Z-Sarbjit 250 mg tablet take 2 tablet (500MG) by oral route every day for 1 day then 1 tablet (250 mg) by oral route once daily for 4 days 500 MG - No Longer Active ibuprofen 200 mg tablet take 1 tablet (200MG) by oral route every 6 hours as needed with food 200 MG - Active fosinopril 20 mg tablet take 1 tablet (20MG) by oral route every day 20 MG - Active triamterene 37.5 mg-hydrochlorothiazide 25 mg capsule take 1 capsule by oral route every day 0 - Active levothyroxine 100 mcg tablet Take 1 tablet by mouth every day. 2013 - Active Prozac 40 mg capsule take 1 capsule (40MG) by oral route every day in the morning 40 MG - Active amlodipine 5 mg tablet take 1 tablet (5MG) by oral route every day 5 MG - Active Immunizations Vaccine Date Status Comments Flu (split) (3 yrs or older) completed Tdap (Boostrix r) completed Results Test Name Date and Time Measure Units Reference Range Abnormal Flag Comments Panel Description: Rapid Strep-throat Rapid Strep-throat 09:14:00 Negative Negative Panel Description: Rapid Strep-throat Rapid Strep-throat 09:14:00 Negative Negative Panel Description: Strep Culture-[facility] Group A Strep Culture 09:14:00 Source: Throat Collected: 01/15/14 09:14 Site: Received : 01/15/14 12:08 Order#: [id number] is the Site? : THROATGroup A Strep Culture PRELIM 01/16/14 08:23 No Beta to dateKEY FOR RESULTS: * - NEW RESULT - RESULT WAS MODIFIED AFTER FINAL STATUS SETPerform at [facility] Reference Lab [address] [place] [id number] [employer] Supervisor [employer] Stalin Stout MD Panel Description: Strep Culture-[facility] Group A Strep Culture 09:14:00 Source: Throat Collected: 01/15/14 09:14 Site: Received : 01/15/14 12:08 Order#: [id number] is the Site? : THROATGroup A Strep Culture FINAL 01/17/14 06:36 No Group A Strep (Strep pyogenes) isolatedKEY FOR RESULTS: * - NEW RESULT - RESULT WAS MODIFIED AFTER FINAL STATUS SETPerform at [facility] Reference Lab [address] [place] [id number] Operations Supervisor [employer] Stalin Stout MD Vital Signs Date / Time: Height Weight Pulse Rate Blood Pressure Temperature /09:07:00 65.00 in 301.60 lbs 82 /min 128/76 mm[Hg] 101.1 F Procedures Procedure Date Unknown Encounters Encounter Location Date Patient Visit [facility] Patient [facility] Patient [facility] Patient [facility] Patient [facility] Patient Visit [facility] Patient Visit [facility] Patient Visit [facility] Patient [facility] Patient Visit [facility] Patient Visit Patient Visit [facility] Patient Visit [facility] Patient Visit [facility] Patient Visit [facility] Patient Visit [facility] Patient Visit [facility] Patient Visit [facility] Patient Visit [facility] Patient Visit [facility] Patient Visit [facility] Patient Visit [facility] Advance Directives Directive Effective Date Unknown
--- NOTE | 2017-03-09 17:38 | NUR ---
DR DR MARTINEZ AT BEDSIDE.
[2017-03-09] MEDS ORDERED: NORMAL SALINE 1,000 ML IV ONE (17:42)
[2017-03-09] MEDS ORDERED: LISI10TA7 PO (17:51)
[2017-03-09] MEDS ORDERED: SERT50TA12 PO (17:51)
[2017-03-09] MEDS ORDERED: ATOR20TA59 PO (17:51)
[2017-03-09] MEDS ORDERED: CHOL50002 PO (17:51)
[2017-03-09] MEDS ORDERED: TRIA1CAP6 PO (17:51)
[2017-03-09] MEDS ORDERED: AMLO5TAB2 PO (17:51)
--- OUTSIDE RECORDS SUMMARY | 2017-03-09 17:53 | XMS REPORT | Continuity of Care Document ---
Author Author [facility] Organization [facility] Address Unknown Phone Unavailable Allergies Active Description Code Type Severity Reaction Onset Reported/Identified Relationship to Patient Clinical Status Yes ciprofloxacin ciprofloxacin Drug Allergy Severe NAUSEA AND DIARRHEA 12/25/2015 Yes UNKNOWN ANTIBIOTIC UNKNOWN ANTIBIOTIC Drug Allergy Unknown N/V 12/25/2015 Medications Problems Procedures Results Encounters ACCT No. Visit Date/Time Discharge Status Pt. Type Provider Facility Loc./Unit Complaint [id number] 01/15/2014 08:58:00 01/15/2014 23 :59:59 [facility] Outpatient [id number] 08/11/2013 11:37:00 08/11/2013 23 :59:59 [facility] Outpatient
--- NOTE | 2017-03-09 17:59 | ERPDOC ---
Departure Disposition Decision Date: March 09, 2017 Disposition Decision Time: 20:27 Disposition: 01 DISCHARGED HOME, SELF-CARE Impression Impression Impression: Primary Impression: Aortic ectasia Additional Impressions: Pulmonary nodule Cardiomegaly Fatty liver Severity: Moderate Condition: Stable Seen By: Physician only Referrals: JEANNETTE WAHL DO (PCP) 3 Days Patient Instructions: Pulmonary Nodules (ED) Problems/Meds/Labs Reviewed?: Yes Medications reviewed and manag: Yes Additional Instructions: We did not find any life-threatening causes of your symptoms today. We did find several things that you need to see your doctor about - ectatic ascending aorta ; a pulmonary nodule; cardiomegaly; and fatty liver. Of these, the ectatic aorta requires follow up in the next week. Call your doctor on Sunday for an appointment. Follow up care ordered?: Yes Mental Status: Alert, Oriented HPI - Cardiac General Chief Complaint: Dizzy Stated Complaint: LOW BLOOD PRESSURE Time Seen by Provider: 17:22 Source: patient, family Exam Limitations: no limitations HPI - Cardiac General Initial Comments 56yo woman presents to the ER tonight with low blood pressure. Pt has had 2 weeks of variable chest pain, hypotension, and general malaise. For the last week, pt has had some URI sx. Pt has only taken Allergies: Coded Allergies: ciprofloxacin (Verified Allergy, Unknown, NAUSEA, 03/09/17) Past History Past Medical History Metabolic: hypertension, hypothyroidism Respiratory: pneumonia Musculoskeletal: osteoarthritis Psychological: anxiety, depression Surgical History General: gallbladder Reproductive/: , hysterectomy Vaccines Hx Influenza Vaccination: Yes (JUN 2011) Hx Pneumococcal Vaccination: No (LONGER THAN FIVE YEARS) Hx Tetanus, Diptheria, Pertuss: No (UNKNOWN) Social History Sexuality: male partner Physical Exam General Vitals and Pain First Documented Vital Signs Date Time Temp Pulse Resp B/P Pulse Ox O2 Delivery O2 Flow Rate FiO2 03/09/17 17:22 97.8 84 16 134/72 99 Room Air Weight: Kilograms: 144.000 Height (feet): 5 Height (inches): 4.00 Triage Pain Scale: Differential Diagnoses Considering: Acute RI, Anxiety/Panic, Heart Block, Pericarditis, Prolonged Qtc , PSVT, Pulmonary Edema, Pulmonary Embolus Progress Results/Orders Orders Procedure Category Date Status Time Nothing By Mouth (Ed EDM 03/09/17 Transmitted Only) 17:42 Iv Lock (Ed Only) EDM 03/09/17 Transmitted 17:42 Cmp - Comprehensive LAB 03/09/17 Complete Metabolic 17:42 Lipase LAB 03/09/17 Complete 17:42 D-Dimer LAB 03/09/17 Complete 17:42 EKG EKG 03/09/17 Taken 17:42 Troponin I W LAB 03/09/17 Complete Hemolysis Index 17:42 Chest, Pa & Lateral RAD 03/09/17 Logged 17:42 Normal Saline (Normal PHA 03/09/17 Complete Saline Iv) 17:42 Ua, Dip Wreflex LAB 03/09/17 Complete Microsc & [employer] Stationary Engineer 17:42 Tsh - Thyroid Stim LAB 03/09/17 Complete Hormone 17:42 INR LAB 03/09/17 Complete 17:42 PTT LAB 03/09/17 Complete 17:42 Magnesium LAB 03/09/17 Complete 17:42 Phosphorus LAB 03/09/17 Complete 17:42 Hemagram - Cbc No Diff LAB 03/09/17 Complete Cta Pulmonary Emboli CT 03/09/17 Logged Iohexol (Omnipaque) PHA 03/09/17 Complete 19:16 Normal Saline (Ns) PHA 03/09/17 Complete 19:16 Saline Flush (Iv PHA 03/09/17 Complete Flush) 19:16 Lab Results Laboratory Tests Test 03/09/17 18:08 03/09/17 18:11 03/09/17 20:06 White Blood Count 8.9T/MM3 Red Blood Count 4.66M/MM3 Hemoglobin 14.4GM/DL Hematocrit 42.9% Mean Corpuscular Volume 92.1UM3 Mean Corpuscular Hemoglobin 30.9UUG Mean Corpuscular Hemoglobin Concent 33.6GM/DL RDW Standard Deviation 44.2FL Platelet Count 178T/MM3 Mean Platelet Volume 10.6UM3 Prothromb Time International Ratio 0.97 Activated Partial Thromboplast Time 28.0SEC D-Dimer 363NG/ML Turbidity < 20 Sodium Level 146MEQ/L Potassium Level 4.1MEQ/L Chloride Level 104MEQ/L Carbon Dioxide Level 27MEQ/L Anion Gap 15MEQ/L Blood Urea Nitrogen 24.0MG/DL Creatinine 1.0MG/DL Glomerular Filtration Rate Calc 57 BUN/Creatinine Ratio 24RATIO Glucose Level 108MG/DL Calculated Osmolality 286MOSM/KG Calcium Level 9.4MG/DL Phosphorus Level 3.3MG/DL Magnesium Level 1.8MG/DL Total Bilirubin 0.80MG/DL Icterus Index < 2 Aspartate Amino Transf (AST/SGOT) 32U/L Alanine Aminotransferase (ALT/SGPT) 44U/L Alkaline Phosphatase 103U/L Troponin I < 0.012ng/ml Total Protein 7.9G/DL Albumin 4.5G/DL Globulin 3.4G/DL Albumin/Globulin Ratio 1.3RATIO Lipase 119U/L Thyroid Stimulating Hormone (TSH) 2.08MIU/L Chemistry Specimen Hemolysis < 15 Urine Collection Type Cleancatch-midstream Urine Color Yellow Urine Turbidity Clear Urine pH 5.5 Urine Specific [place] 1.010 Urine Protein Negative Urine Glucose (UA) Negative Urine Ketones Negative Urine Blood Negative Urine Nitrite Negative Urine Bilirubin Negative Urine Urobilinogen 0.2EU/DL Urine Leukocyte Esterase Negative Urinalysis Comment Microscopic not ind. Medications Current ED Medications Sodium Chloride (Normal Saline IV) 1,000 ml @ 0 mls/hr Q0M ONCE IV Last administered on 03/09/17t 18:12; Start 03/09/17 at 17:42; Stop 03/09/17 at 17:44 ; Status DC Iohexol 1 bottle 1 bottle STK-MED ONCE .ROUTE ; Start 03/09/17 at 19:16; Stop at 19:17; Status DC Sodium Chloride (NS) 100 ml @ As Directed STK-MED ONCE .ROUTE ; Start 03/09/17 at 19:16; Stop 03/09/17 at 19:17; Status DC Sodium Chloride (Iv Flush) 10 ml STK-MED ONCE .ROUTE ; Start 03/09/17 at 19:16; Stop 03/09/17 at 19:17; Status DC Progress Progress 56yo woman with numerous abn findings on CT PE, the most concerning of which is her ectatic ascending aorta. Discussed findings, dx, prognosis, and need for f/ u with pt, who voiced understanding. EKG EKG : Rate: 60-100 Rhythm: sinus [place]: normal QRS: normal Intervals: normal ST/T: normal Interpreted by: signing physician CT CT : CT: PE IV contrast Interpretation: Abnormal (Ectatic ascending aorta; pulm nodule; cardiomegaly ; fatty liver.) FEBRUARYJASON DO March 09, 2017 17:59
[2017-03-09 18:22] LABS: INR 0.97 (0.77-1.03); PROTHROMBIN TIME 10.7 SEC (9.48-12.52)
[2017-03-09 18:24] LABS: ALBUMIN 4.5 G/DL (3.5-5.0); ALBUMIN/GLOBULIN RATIO 1.3 RATIO (1.1-2.2); ALKALINE PHOSPHATASE 103 U/L (38-126); ALT (SGPT) 44 U/L (9-52); ANION GAP 15 MEQ/L (5-15); AST (SGOT) 32 U/L (14-36); BUN/CREATININE RATIO 24 RATIO (6-26); CALCIUM 9.4 MG/DL (8.4-10.2); CHLORIDE 104 MEQ/L (98-107); CO2 - CARBON DIOXIDE 27 MEQ/L (22-30); GLOMERULAR FILTRATION RATE 57; GLUCOSE 108 MG/DL (65-110); LIPASE 119 U/L (23-300); MAGNESIUM 1.8 MG/DL (1.6-2.3); POTASSIUM 4.1 MEQ/L (3.6-5); SODIUM 146 MEQ/L (134-144); TOTAL PROTEIN 7.9 G/DL (6.3-8.2)
[2017-03-09 18:44] LABS: HCT - HEMATOCRIT 42.9 % (36-46); HGB - HEMOGLOBIN 14.4 GM/DL (12-16); MEAN CORPUSCULAR HGB 30.9 UUG (26-34); MEAN CORPUSCULAR HGB CONC(MCHC 33.6 GM/DL (31-37); MEAN CORPUSCULAR VOLUME 92.1 UM3 (80-100); MEAN PLATELET VOLUME 10.6 UM3 (9.4-12.4); RED BLOOD COUNT 4.66 M/MM3 (4.00-5.20); WBC - WHITE BLOOD COUNT 8.9 T/MM3 (4.5-11.0)
[2017-03-09 18:50] LABS: PHOSPHORUS 3.3 MG/DL (2.5-4.5)
[2017-03-09 18:54] LABS: THYROID STIM HORMONE-TSH 2.08 MIU/L (0.47-4.68)
--- NOTE | 2017-03-09 19:01 | NUR ---
STATUS PT DENIES DIZZINESS/LIGHTHEADEDNESS/NAUSEA AT THIS TIME. DENIES NEEDS AT THIS TIME. AT SIDE. IV SITE APPROPRIATE AND IVF RUNNING.
--- NOTE | 2017-03-09 19:10 | NUR ---
DR DR MARTINEZ AT CHAIRSIDE.
--- NOTE | 2017-03-09 19:12 | NUR ---
RADIOLOGY PT TO CT VIA WC.
[2017-03-09] MEDS ORDERED: IOHEXOL 350 MG/ML 75ml INJECTION ONE (19:16)
[2017-03-09] MEDS ORDERED: SALINE FLUSH 10ml SYRINGE ONE (19:16)
[2017-03-09] MEDS ORDERED: NORMAL SALINE 100 ML ONE (19:16)
[2017-03-09 20:12] LABS: BLOOD, URINE NEGATIVE (NEGATIVE); COLOR,URINE YELLOW (YELLOW); LEUKOCYTE ESTERASE ,URINE NEGATIVE (NEGATIVE); NITRITE,URINE NEGATIVE (NEGATIVE); UROBILINOGEN,URINE 0.2 EU/DL (NORMAL)
--- NOTE | 2017-03-09 20:42 | NUR ---
DR DR MARTINEZ AT BEDSIDE.
[2017-03-09 20:50] VITALS: BP 101/59; PULSE 69; RESP 17; TEMP 98.1; O2SAT 97
--- NOTE | 2017-03-09 20:50 | NUR ---
DISMISS PT AMBULATORY TO LOBBY WITH AT THIS TIME.
--- NOTE | 2017-03-11 12:17 | DI ---
Indication: ITS.REASON: Intermittent CP; hypotension; elevated d-dimer PROCEDURE: CTA PULMONARY EMBOLI: Encounter: Initial Comparison: None Technique: Axial CT pulmonary angiographic phase images were performed through the chest after the administration of intravenous contrast. Coronal and Sagittal MIP reconstructed images were created and reviewed. Automated Exposure Control and Iterative Reconstruction dose reducing techniques were utilized. Contrast: Omnipaque 350 74 mL Findings: Pulmonary arteries: Exam is diagnostic to the segmental pulmonary arterial level. No filling defects identified to suggest a pulmonary embolus. Subsegmental pulmonary artery branches cannot be well evaluated due to motion artifact. Other findings: Lungs are clear. No pleural effusion or pneumothorax. Central airways are patent. No axillary or mediastinal adenopathy. Heart size is mildly enlarged. Small foci of air in the right atrium probably due to intravenous access. Mild ectasia of the ascending aorta at 4.3 cm. No pericardial effusion. The upper abdomen shows no acute findings. Impression: No pulmonary embolus or acute disease process seen. There is a preliminary report by [employer]. .
== END 2017-03-09 20:50 | disposition home or self-care (01) ==
LOC: ED 17:19
DX: I77.810 Thoracic aortic ectasia (principal); R91.1 Solitary pulmonary nodule; I51.7 Cardiomegaly; K76.0 Fatty (change of) liver, not elsewhere classified; I10 Essential (primary) hypertension
CPT/HCPCS: 71275; 80053; 81003; 83690; 83735; 84100; 84443; 84484; 85027; 85379; 85610; 85730; 93005; 96360; 99284; J7030; J7050; Q9967